=== PATIENT | female | born 1980 | race Caucasian/White ===

== ENCOUNTER 2018-12-27 06:35 | Inpatient (IN) | payer OTHER ==
[2018-12-27] MEDS: ELECTROLYTE-148 SOLN 1,000 ML IV SCH (07:00)
[2018-12-27 07:38] VITALS: BMI 46.8
[2018-12-27] MEDS ORDERED: morphine SULFATE/PF 0.5 MG/ML (2cc Syringe - QUVA) ONE (08:04)
[2018-12-27] MEDS ORDERED: SUCCINYLCHOLINE CHLORIDE 200 MG/10 ML SYRINGE ONE (08:04)
[2018-12-27] MEDS ORDERED: PROPOFOL 20 ML ONE (08:04)
[2018-12-27] MEDS ORDERED: ePHEDrine SULFATE 50 MG/1 ML AMPULE ONE ×2 (08:05→08:36)
[2018-12-27] MEDS ORDERED: morphine SULFATE/PF 0.5 MG/ML (2cc Syringe - QUVA) SPIN ONE (08:20)
--- NOTE | 2018-12-27 08:21 | HP ---
Past Medical History - Admission Chief Complaint: Elective History of Present Illness: 38 yo obese, with h/o thyroid disease, @ 39 weeks gestation, is pre op for repeat . She had e prior C-sections. She denies any contractions pain. She declines tubal ligation. History Source: Patient Limitations to Obtaining History: No Limitations - Past Medical History ...: 3 ...Para: 2 ...Term: 2 ...: 0 ...Spon : 0 ...Induced : 0 ...Multiple Gestation: 0 ...LMP: 03/31/18 ... Weeks Gestation by Dates: 38.6 ...EDC by Dates: 01/04/19 ...EDC by Sono: 01/04/19 - Past Surgical History Past Surgical History: Yes: Hx Myomectomy: No Hx Transabdominal Cerclage: No - Smoking History Smoking history: Never smoked Have you smoked in the past 12 months: No - Alcohol/Substance Use Hx Alcohol Use: No - Social History Usual Living Arrangement: Yes: Other (With extended family) History of Recent Travel: No Home Medications - Allergies Allergies/Adverse Reactions: Allergies Allergy/AdvReac Type Severity Reaction Status Date / Time No Known Allergies Allergy Verified 12/27/18 07:13 - Home Medications Home Medications: Ambulatory Orders Levothyroxine Sodium [Levo-T] 200 mcg PO DAILY 10/13/18 Prenat 115/Iron Fum/Folic/Dss [ 19 Tablet] 1 tab PO DAILY 10/13/18 Family Medical History Family History: Unremarkable Review of Systems - Review of Systems Constitutional: reports: No Symptoms Eyes: reports: No Symptoms HENT: reports: No Symptoms Neck: reports: No Symptoms Cardiovascular: reports: No Symptoms Respiratory: reports: No Symptoms Gastrointestinal: reports: No Symptoms Genitourinary: reports: No Symptoms Breasts: reports: No Symptoms Reported Musculoskeletal: reports: No Symptoms Integumentary: reports: No Symptoms Neurological: reports: No Symptoms Endocrine: reports: No Symptoms Hematology/Lymphatic: reports: No Symptoms Psychiatric: reports: No Symptoms Pain Intensity: 0 Physical Exam - Maternity Vital Signs: Vital Signs Temperature 97.8 F 12/27/18 07:12 Pulse Rate 94 H 12/27/18 07:12 Respiratory Rate 20 12/27/18 07:12 Blood Pressure 131/73 12/27/18 07:12 O2 Sat by Pulse Oximetry (%) Constitutional: Yes: Well Nourished Eyes: Yes: Conjunctiva Clear HENT: Yes: Atraumatic Neck: Yes: Supple Cardiovascular: Yes: Regular Rate and Rhythm Lungs: Clear to auscultation - Abdominal Exam/OB Number of Fetuses: Single Presentation: Vertex Contractions: No - Vaginal Exam/OB Presentation: Vertex/Position - Physical Exam ...Motor Strength: WNL Psychiatric: Yes: Alert, Oriented Problem List - Problems (1) Delivery by elective section Problems reviewed: Yes Code(s): O82 - ENCOUNTER FOR DELIVERY WITHOUT INDICATION (2) Previous section Problems reviewed: Yes Code(s): Z98.891 - HISTORY OF UTERINE SCAR FROM PREVIOUS SURGERY Assessment/Plan Previous Pre op for elective Consent signed Anesthesia to see patient
[2018-12-27] MEDS ORDERED: MIDAZOLAM HCL 2 MG/2 ML SINGLE DOSE VIAL ONE (09:03)
[2018-12-27] MEDS ORDERED: OXYTOCIN 10 UNITS/ML VIAL ONE (09:07)
[2018-12-27] MEDS ORDERED: METHYLERGONOVINE MALEATE 0.2 MG/1 ML AMP IM PRN (09:51)
[2018-12-27] MEDS ORDERED: IBUPROFEN 800 MG/8 ML IJ IVPB PRN (09:51)
[2018-12-27] MEDS ORDERED: oxyCODONE HCL 5 MG TABLET PO PRN (09:51)
--- NOTE | 2018-12-27 09:55 | OP ---
Operative Note - Note: Operative Date: 12/27/18 Pre-Operative Diagnosis: Elective Operation: Repeat Low Transverse Findings: Baby boy in cephallic presentation Post-Operative Diagnosis: Same as Pre-op Surgeon: Anaya Mcwilliams Automotive Parts Clerk: José Miguel Gunn Anesthesia: Spinal Specimens Removed: Placenta Estimated Blood Loss (mls): 700 Operative Report Dictated: Yes
[2018-12-27] MEDS ORDERED: ONDANSETRON 4 MG/2 ML VIAL IVPUSH PRN (10:16)
[2018-12-27] MEDS: PRENATAL VITAMINS W/ FOLIC ACID TABLET (FP) PO SCH (10:21)
[2018-12-27] MEDS: FERROUS SO4 325 MG TABLET (FP) PO SCH ×2 (10:34→22:00)
--- NOTE | 2018-12-27 15:13 | OP ---
DATE OF OPERATION: 12/27/2018 PREOPERATIVE DIAGNOSIS: Previous section. POSTOPERATIVE DIAGNOSIS: Previous section. PROCEDURE: Repeat low transverse section. SURGEON: Anaya Mcwilliams MD ANESTHESIA: Spinal. MOTORBOAT OPERATOR: EMELY Hernandez COMPLICATIONS: None. ESTIMATED BLOOD LOSS: 700 mL. DESCRIPTION OF PROCEDURE: Patient was taken to the operating room where spinal anesthesia was administered. Patient was then prepped and draped in proper sterile fashion. A Pfannenstiel skin incision was made and carried down to the underlying layer of fascia. The fascia was incised in the midline and extended laterally. The inferior aspect of the fascial incision was then grasped with a Sampson clamp, elevated, and the rectus muscle dissected out bluntly. Attention was then turned to the superior aspect of the fascial incision which, in a similar fashion, was then grasped with a Sampson clamp, elevated, and the rectus muscle dissected out bluntly. The rectus muscle was then in the midline. The peritoneum identified and entered sharply with the Metzenbaum scissors. The peritoneal incision was entered with the Metzenbaum scissors, and the incision was extended superiorly and inferiorly with good visualization of the bladder. Then, the vesicouterine peritoneum was then grasped with a pickup and entered sharply with the Metzenbaum scissors. This incision was extended laterally and the bladder flap created digitally. The bladder blade was inserted, and the lower uterine segment was incised using a 10-blade. This incision was extended laterally and the head delivered atraumatically. Nose and mouth were suctioned and the cord clamped and cut. The infant was handed to the waiting climatology professor. The placenta was removed manually, and the uterus was cleared of all clots and debris. The uterine incision was repaired using 0 Biosyn in a running locked fashion. A second layer of the same suture was used as a means to provide excellent hemostasis. Then, the pelvis was then irrigated. The peritoneum was closed using 3-0 Vicryl. The fascia was reapproximated using 0 Vicryl in a running fashion, and the skin was closed in a subcuticular fashion using 3-0 Vicryl. Patient tolerated the procedure well. Patient was then taken to PACU in stable condition. PATHOLOGY: Placenta. Latonya ROSSI/[id number]
[2018-12-27] MEDS: OXYTOCIN 20 UNITS in 0.9% NS 20 UNIT/1,000 ML INFUS.BAG IV SCH (18:15)
[2018-12-28] MEDS: OXYTOCIN 20 UNITS in 0.9% NS 20 UNIT/1,000 ML INFUS.BAG IV SCH (02:07)
--- NOTE | 2018-12-28 05:33 | PN ---
Post Note - Post Date of Delivery: 12/27/18 Post Day: 1 Vital Signs: Vital Signs - 24 hr 12/27/18 12/27/18 12/27/18 07:12 09:45 10:00 Temperature 97.8 F 97.9 F Pulse Rate 94 H 87 88 Respiratory 20 20 19 Rate Blood Pressure 131/73 115/46 L 104/49 L O2 Sat by Pulse 95 98 Oximetry (%) 12/27/18 12/27/18 12/27/18 10:15 10:30 11:15 Temperature 97.7 F Pulse Rate 79 86 70 Respiratory 20 18 20 Rate Blood Pressure 100/55 L 101/55 L 105/63 O2 Sat by Pulse 99 99 100 Oximetry (%) 12/27/18 12/27/18 12/27/18 12:00 13:00 14:00 Temperature 99.0 F Pulse Rate 72 Respiratory 18 18 18 Rate Blood Pressure 111/57 L O2 Sat by Pulse Oximetry (%) 12/27/18 12/27/18 12/27/18 15:00 16:00 17:00 Temperature Pulse Rate Respiratory 18 18 18 Rate Blood Pressure O2 Sat by Pulse Oximetry (%) 12/27/18 12/27/18 12/27/18 18:00 19:00 20:00 Temperature 98.0 F Pulse Rate 85 Respiratory 18 18 18 Rate Blood Pressure 105/70 O2 Sat by Pulse Oximetry (%) 12/27/18 12/27/18 12/27/18 21:00 22:00 23:00 Temperature 98.6 F Pulse Rate 74 Respiratory 18 18 18 Rate Blood Pressure 100/58 L O2 Sat by Pulse Oximetry (%) 12/28/18 12/28/18 12/28/18 00:00 01:00 02:00 Temperature 98.0 F Pulse Rate 71 Respiratory 18 18 18 Rate Blood Pressure 107/68 O2 Sat by Pulse Oximetry (%) 12/28/18 12/28/18 03:00 04:00 Temperature Pulse Rate Respiratory 18 18 Rate Blood Pressure O2 Sat by Pulse Oximetry (%) - Subjective Subjective: No Complaints - Objective Afebrile: Yes Breast: Not engorged Abdomen: Soft, Non-tender Uterus: Fundus firm Vagina: Scant lochia Extremities: Non-tender - Assessment/Plan (1) Delivery by elective section Assessment: Other (POD1 stable) (2) Previous section Assessment: Other (POD1) Plan: Routine Care
[2018-12-28 07:56] LABS: BASO % 0.3 % (0-2.0); EOS % 0.9 % (0-4.5); HEMATOCRIT 29.8 % (32.4-45.2); HEMOGLOBIN 9.8 GM/dL (10.7-15.3); LYMPH % 11.4 % (8-40); MCH 28.8 pg (25.7-33.7); MCHC 32.8 g/dl (32.0-36.0); MEAN CELL VOLUME 87.8 fl (80-96); MEAN PLT VOLUME 9.5 fl (7.5-11.1); NEUT % 80.4 % (42.8-82.8); PLATELET COUNT 158 K/MM3 (134-434); RBC 3.39 M/mm3 (3.60-5.2); RDW 14.6 % (11.6-15.6); WHITE BLOOD COUNT 8.7 K/mm3 (4.0-10.0)
--- NOTE | 2018-12-28 10:02 | PN ---
Progress Note (short form) - Note Progress Note: Post op day#1.S/P C Section under spinal anesthesia with duramorph uneventful.Patient stable and has little pain for which she is on medication.No any anesthesia related problem.Patient DC from the anesthesia care.
[2018-12-28] MEDS: FERROUS SO4 325 MG TABLET (FP) PO SCH ×2 (10:12→21:48)
[2018-12-28] MEDS: PRENATAL VITAMINS W/ FOLIC ACID TABLET (FP) PO SCH (10:12)
[2018-12-28] MEDS: BISACODYL 10 MG SUPP.RECT RC PRN (18:58)
[2018-12-29] MEDS: BISACODYL 10 MG SUPP.RECT RC PRN (01:35)
[2018-12-29] MEDS: IBUPROFEN 600 MG TABLET (FP) PO PRN ×3 (02:02→21:08)
[2018-12-29] MEDS: SIMETHICONE 80 MG TAB.CHEW (FP) PO PRN ×3 (02:02→21:08)
[2018-12-29] MEDS: ACETAMINOPHEN 325 MG TABLET (FP) PO PRN ×2 (09:41→21:08)
[2018-12-29] MEDS: FERROUS SO4 325 MG TABLET (FP) PO SCH ×2 (09:42→21:26)
[2018-12-29] MEDS: PRENATAL VITAMINS W/ FOLIC ACID TABLET (FP) PO SCH (09:42)
[2018-12-30 08:08] LABS: BASO % 0.6 % (0-2.0); EOS % 3.7 % (0-4.5); HEMATOCRIT 30.1 % (32.4-45.2); HEMOGLOBIN 9.8 GM/dL (10.7-15.3); LYMPH % 20.9 % (8-40); MCH 28.4 pg (25.7-33.7); MCHC 32.4 g/dl (32.0-36.0); MEAN CELL VOLUME 87.6 fl (80-96); MEAN PLT VOLUME 9.3 fl (7.5-11.1); MONO % 7.8 % (3.8-10.2); PLATELET COUNT 185 K/MM3 (134-434); RBC 3.44 M/mm3 (3.60-5.2); RDW 15.1 % (11.6-15.6); WHITE BLOOD COUNT 7.2 K/mm3 (4.0-10.0)
[2018-12-30] MEDS: PRENATAL VITAMINS W/ FOLIC ACID TABLET (FP) PO SCH (10:36)
[2018-12-30] MEDS: SIMETHICONE 80 MG TAB.CHEW (FP) PO PRN ×2 (10:36→20:27)
[2018-12-30] MEDS: FERROUS SO4 325 MG TABLET (FP) PO SCH ×2 (10:36→21:16)
[2018-12-30] MEDS: IBUPROFEN 600 MG TABLET (FP) PO PRN ×2 (10:36→20:27)
[2018-12-30] MEDS: ACETAMINOPHEN 325 MG TABLET (FP) PO PRN ×2 (10:37→20:27)
[2018-12-30] MEDS: OXYTOCIN 20 UNITS in 0.9% NS 20 UNIT/1,000 ML INFUS.BAG IV SCH ×2 (20:14→20:15)
[2018-12-30] MEDS: ELECTROLYTE-148 SOLN 1,000 ML IV SCH ×3 (20:14→20:16)
[2018-12-31] MEDS: SIMETHICONE 80 MG TAB.CHEW (FP) PO PRN (08:35)
[2018-12-31] MEDS: IBUPROFEN 600 MG TABLET (FP) PO PRN (08:35)
[2018-12-31] MEDS: ACETAMINOPHEN 325 MG TABLET (FP) PO PRN (08:36)
--- NOTE | 2018-12-31 08:38 | DS ---
Physical Exam-PATTERNMAKER ALL AROUND Vital Signs: Vital Signs Temperature 98.1 F 12/30/18 22:00 Pulse Rate 82 12/30/18 22:00 Respiratory Rate 18 12/30/18 22:00 Blood Pressure 143/85 12/30/18 22:00 O2 Sat by Pulse Oximetry (%) 100 12/27/18 11:15 Constitutional: No: No Distress Eyes: Yes: Conjunctiva Clear HENT: Yes: Atraumatic Neck: Yes: Supple Cardiovascular: Yes: Regular Rate and Rhythm Respiratory: Yes: Regular Gastrointestinal: Yes: Normal Bowel Sounds ...Rectal Exam: Yes: WNL Renal/: Yes: WNL Pelvis: Yes: WNL External Genitalia: Yes: Normal Vaginal Exam: Yes: Normal Cervix: Yes: Normal Uterus: Yes: Firm Breast(s): Yes: WNL Musculoskeletal: Yes: WNL Extremities: No: Calf Tenderness Wound/Incision: Yes: Well Approximated Neurological: Yes: Alert, Oriented ...Motor Strength: WNL Psychiatric: Yes: Alert, Oriented Labs: CBC, BMP 12/30/18 07:22 Delivery - Delivery Type of Anesthesia: Spinal Episiotomy/Laceration: None EBL (cc): 700 Delivery, Single - Stages of Labor Date of Delivery: 12/27/18 Time of Delivery: 08:50 Time Placenta Delivered: 08:52 - Condition of Infant Floor Care Specialist/Maintenance Painter Apprentice Present: Yes Name: Pao Humphreys Infant Gender: Male Weight: 7 lb 5 oz Position: Right, OT Total Hours ROM (Hrs/Mins): hrs 4min - 1 Minute Total Score: 8 5 Minutes Total Score: 8 - [place] Feeding Plan Initial Plan: Exclusive throughout hospitalization Discharge Summary Problems reviewed: Yes Reason For Visit: SCHEDULED C/SECTION Current Active Problems Delivery by elective section (Acute) Previous section (Acute) Procedures: Principal: Repeat Low Transverse Hospital Course: Routine post op care Health Concerns: Obesity Plan of Treatment: Resume normal activities in 6 weeks MD follow up in 2 weeks Goals: Resume normal activities in 6 weeks Condition: Good - Instructions Diet, Activity, Other Instructions: Regular diet No driving, no lifting for 4 weeks F/U with MD in 2 weeks Disposition: HOME - Home Medications Comprehensive Discharge Medication List: Ambulatory Orders Levothyroxine Sodium [Levo-T] 200 mcg PO DAILY 10/13/18 Prenat 115/Iron Fum/Folic/Dss [ 19 Tablet] 1 tab PO DAILY 10/13/18 Prescription Drug Monitoring Program (I-STOP) results: I-STOP not reviewed
[2018-12-31 09:25] VITALS: BP 138/89; PULSE 77; TEMP 98.2
[2018-12-31] MEDS: PRENATAL VITAMINS W/ FOLIC ACID TABLET (FP) PO SCH (11:20)
[2018-12-31] MEDS: FERROUS SO4 325 MG TABLET (FP) PO SCH (11:20)
--- NOTE | 2018-12-31 11:24 | PN ---
Post Note - Post Date of Delivery: 12/27/18 Vital Signs: Vital Signs - 24 hr 12/30/18 12/31/18 22:00 08:30 Temperature 98.1 F 98.2 F Pulse Rate 82 77 Respiratory 18 18 Rate Blood Pressure 143/85 138/89 - Subjective Subjective: No Complaints, No Nausea or vomiting - Objective Afebrile: Yes Breast: Not engorged Abdomen: Soft, Non-tender Uterus: Fundus firm Vagina: Scant lochia Extremities: Non-tender - Assessment/Plan (1) Delivery by elective section Assessment: Other (POD1) (2) Previous section Plan: Routine Care
--- NOTE | 2019-01-04 17:52 | PATH ---
Surgical Pathology Report Patient Name: KENDALL LANE Med. Rec. #: [id number] /Age/Gender: 1980 (Age: 38) / F Account: [id number] Location: [facility] OBS/PHARMACIST PER DIEM Taken: 12/27/2018 Received: 12/27/2018 Reported: 01/04/2019 Physicians: Anaya Mcwilliams M.D. Specimen(s) Received PLACENTA Clinical History , previous x2, history of hypothyroidism Final Diagnosis PLACENTA, SECTION: 592 G THIRD TRIMESTER PLACENTA WITH TRIVASCULAR UMBILICAL CORD AND UNREMARKABLE PLACENTAL MEMBRANES. Electronically Signed Jes Daiely M.D. Gross Description The specimen is received fresh labeled placenta and is a 592 gram, 21.0 x15.0 x 3.6 cm. markedly disrupted placenta with attached membranes and umbilical cord. The attached membranes are marie, translucent with focal opacities and insert marginally. The umbilical cord measures 47 cm. in length and averages 1.2 cm. in diameter. The cord inserts eccentrically, 3 cm. to the nearest margin. No true knots or strictures are identified. Cut surface of the umbilical cord reveals 3 vessels. The surface is manjarrez blue with a large central defect, moderate fibrin deposition and appropriate caliber vessels. The maternal surface is red-brown with focal defects. Sectioning reveals red-brown, spongy parenchyma. No lesions are identified. Automotive Tire Technician sections are submitted in three cassettes as follows: 1- membrane rolls and umbilical cord; 2-3- full thickness sections of placenta. 01/02/2019 [place]01/02/2019
== END 2018-12-31 14:40 | disposition home or self-care (01) | DRG 540 ==
LOC: JLDR 06:35 → J3W 10:59
PROVIDERS: ADMIT Obstetrics & Gynecology; ATTEND Obstetrics & Gynecology
PROC: 10D00Z1 Extraction of Products of Conception, Low, Open Approach (ICD-10-PCS; principal; 2018-12-27)
DX: O34.211 Maternal care for low transverse scar from previous cesarean delivery (principal); N85.8 Other specified noninflammatory disorders of uterus; Z3A.39 39 weeks gestation of pregnancy; O99.284 Endocrine, nutritional and metabolic diseases complicating childbirth; O99.214 Obesity complicating childbirth; Z37.0 Single live birth
CPT/HCPCS: 36415; 85025; 88307-TC

== ENCOUNTER 2019-01-01 11:43 | Emergency (ER) | payer OTHER ==
[2019-01-01 12:01] VITALS: PULSE 70; TEMP 98.5; BMI 46.3
--- NOTE | 2019-01-01 13:11 | PDOC ---
History of Present Illness - General Chief Complaint: Wound Stated Complaint: WOUND CARE Time Seen by Provider: 01/01/19 12:32 - History of Present Illness Initial Comments: 01/01/19 13:58 Ms. Mars is a 38 yo female w/ pmh of obesity, s/p 12/[address] Mcwilliams w/ discharge yesterday who presents for evaluation of pain at incision site. Patient also reports she has had serosanguineous drainage over the last day as well. Patient presents as her pain has gotten worse from discharge. The patient denies chest pain, shortness of breath, headache and dizziness. Denies fever, chills, nausea, vomit, diarrhea and constipation. Denies dysuria, frequency, urgency and hematuria. Past History - Past Medical History Allergies/Adverse Reactions: Allergies Allergy/AdvReac Type Severity Reaction Status Date / Time No Known Allergies Allergy Verified 01/01/19 12:02 Home Medications: Ambulatory Orders Levothyroxine Sodium [Levo-T] 200 mcg PO DAILY 10/13/18 Prenat 115/Iron Fum/Folic/Dss [ 19 Tablet] 1 tab PO DAILY 10/13/18 Asthma: No Cancer: No Cardiac Disorders: No COPD: No Diabetes: No HTN: No Seizures: No Thyroid Disease: Yes (hypothyroidism) - Psycho Social/Smoking Cessation Hx Smoking History: Never smoked Have you smoked in the past 12 months: No Hx Alcohol Use: No Drug/Substance Use Hx: No Hx Substance Use Treatment: No Review of Systems - Review of Systems Comments:: 01/01/19 14:00 GENERAL/CONSTITUTIONAL: No fever or chills. No weakness. HEAD, EYES, EARS, NOSE AND THROAT: No change in vision. No ear pain or discharge. No sore throat. CARDIOVASCULAR: No chest pain or shortness of breath RESPIRATORY: No cough, wheezing, or hemoptysis. GASTROINTESTINAL: +Pain at site w/ drainage as described. No nausea, vomiting, diarrhea or constipation. GENITOURINARY: No dysuria, frequency, or change in urination. MUSCULOSKELETAL: No joint or muscle swelling or pain. No neck or back pain. SKIN: No rash NEUROLOGIC: No headache, vertigo, loss of consciousness, or change in strength/ sensation. ENDOCRINE: No increased thirst. No abnormal weight change HEMATOLOGIC/LYMPHATIC: No anemia, easy bleeding, or history of blood clots. ALLERGIC/IMMUNOLOGIC: No hives or skin allergy. *Physical Exam - Vital Signs Last Vital Signs Temp Pulse Resp BP Pulse Ox 98.5 F 70 18 148/77 98 01/01/19 11:58 01/01/19 11:58 01/01/19 11:58 01/01/19 11:58 01/01/19 11:58 - Physical Exam Comments: 01/01/19 14:01 GENERAL: Awake, alert, and fully oriented, in no acute distress HEAD: No signs of trauma, normocephalic, atraumatic EYES: PERRLA, EOMI, sclera anicteric, conjunctiva clear ENT: Auricles normal inspection, hearing grossly normal, nares patent, oropharynx clear without exudates. Moist mucosa NECK: Normal ROM, supple, no lymphadenopathy, JVD, or masses LUNGS: No distress, speaks full sentences, clear to auscultation bilaterally HEART: Regular rate and rhythm, normal S1 and S2, no murmurs, rubs or gallops, peripheral pulses normal and equal bilaterally. ABDOMEN: +Well-healing incision site noted; no erythema or discharge, TTP. Soft, nontender, normoactive bowel sounds. No guarding, no rebound. No masses EXTREMITIES: Normal inspection, Normal range of motion, no edema. No clubbing or cyanosis. NEUROLOGICAL: Cranial nerves II through XII grossly intact. Normal speech, normal gait, no focal sensorimotor deficits SKIN: Warm, Dry, normal turgor, no rashes or lesions noted. ED Treatment Course - LABORATORY CBC & Chemistry Diagram: 01/01/19 13:58 01/01/19 13:58 Medical Decision Making - Medical Decision Making 01/01/19 16:13 Ms. Mars is a 38 yo female w/ pmh as described who presents for evaluation of pain at incision site following discharge yesterday. Patient denies any infection symptoms and well appearing. Attempted to get in touch with [facility] however unable to reach despite multiple attempts. CTAP ordered for further evaluation of possible collection or surgical sequelae; patient refusing IV contrast over concern of risks with breast-feeding. Patient pending CTAP at this time. 01/01/19 17:11 CT scan positive for cholelithiasis only. Repeat BP normalized. No concern for acute process at this time and patient will follow-up outpatient for further evaluation. No concern for acute process at this time. Discharging to home. Discharge - Discharge Information Problems reviewed: Yes Clinical Impression/Diagnosis: Previous section Disposition: HOME - Follow up/Referral Referrals: Radha Mars MD [Primary Care Provider] - - Patient Discharge Instructions Patient Printed Discharge Instructions: DI for Additional Instructions: You were evaluated today in the ER following your surgery. We performed laboratory evaluation as well as CT scan with no concerning findings. Please follow-up with [facility] later this week for further evaluation. You may take over the counter tylenol per package instructions for pain control. Return to ER if any fever, chills, increase in pain, or other concerning symptoms. - Post Discharge Activity
[2019-01-01 14:46] LABS: ALBUMIN 2.6 g/dl (3.4-5.0); BILIRUBIN,TOTAL 0.2 mg/dL (0.2-1); BLOOD UREA NITROGEN 11.2 mg/dL (7-18); CALCIUM 8.8 mg/dL (8.5-10.1); CREATININE 0.5 mg/dL (0.55-1.3)
[2019-01-01 14:48] LABS: BASO % 0.5 % (0-2.0); EOS % 2.8 % (0-4.5); HEMATOCRIT 32.8 % (32.4-45.2); HEMOGLOBIN 10.6 GM/dL (10.7-15.3); LYMPH % 22.1 % (8-40); MCH 28.1 pg (25.7-33.7); MCHC 32.2 g/dl (32.0-36.0); MEAN CELL VOLUME 87.4 fl (80-96); MEAN PLT VOLUME 9.2 fl (7.5-11.1); MONO % 6.9 % (3.8-10.2); NEUT % 67.7 % (42.8-82.8); PLATELET COUNT 254 K/MM3 (134-434); RBC 3.75 M/mm3 (3.60-5.2); RDW 15.2 % (11.6-15.6); WHITE BLOOD COUNT 6.1 K/mm3 (4.0-10.0)
--- NOTE | 2019-01-01 15:26 | PDOC ---
Attending Attestation - Resident Resident Name: Kameron Valleorn - ED Attending Attestation I have performed the following: I have examined & evaluated the patient, The case was reviewed & discussed with the resident, I agree w/resident's findings & plan - HPI HPI: 01/01/19 15:22 38y/o F POD 5 . Pt pain was improving but now with two episodes of bleeding over past two days and worsening pain to lower abdomen/incision site. no pus/redness, "felt cold" but no measured fever. normal vaginal bleeding, no other discharge. - Physicial Exam PE: 01/01/19 15:23 Afebrile, vital signs stable Alert, obese, otherwise well-appearing lying in stretcher Abdomen is soft/nondistended. Tender to the lower abdomen above the incision site, incision is otherwise clean/dry/intact with small area of clotted blood/ scab, no erythema or discharge. No fluctuance or induration. - Medical Decision Making 01/01/19 15:24 38-year-old female postop day 5 presents with lower abdominal pain and intermittent bleeding from the site. No evidence of infection externally, no active bleeding, hemodynamically stable but with lower abdominal tenderness on examination, question normal postop. Check labs Consider imaging Discuss with [employer] FIELD COORDINATOR
[2019-01-01 18:56] VITALS: BP 132/71
== END 2019-01-01 17:26 | disposition home or self-care (01) ==
LOC: JER 11:43
DX: O90.89 Other complications of the puerperium, not elsewhere classified (principal); G89.18 Other acute postprocedural pain; O99.63 Diseases of the digestive system complicating the puerperium; K80.20 Calculus of gallbladder without cholecystitis without obstruction
CPT/HCPCS: 36415; 74176-TC; 80053; 85025; 99282-25

== ENCOUNTER 2020-06-10 08:16 | Inpatient (IN) | payer OTHER ==
[2020-06-10 10:03] LABS: BASO % 0.6 % (0-2.0); EOS % 0.6 % (0-4.5); HEMATOCRIT 38.9 % (32.4-45.2); HEMOGLOBIN 13.3 GM/dL (10.7-15.3); LYMPH % 17.6 % (8-40); MCH 29.7 pg (25.7-33.7); MCHC 34.2 g/dl (32.0-36.0); MEAN CELL VOLUME 86.9 fl (80-96); MEAN PLT VOLUME 9.4 fl (7.5-11.1); MONO % 3.8 % (3.8-10.2); NEUT % 77.4 % (42.8-82.8); PLATELET COUNT 228 K/MM3 (134-434); RBC 4.47 M/mm3 (3.60-5.2); RDW 13.9 % (11.6-15.6); WHITE BLOOD COUNT 9.2 K/mm3 (4.0-10.0)
[2020-06-10 10:23] LABS: CALCIUM 8.9 mg/dL (8.5-10.1)
[2020-06-10 10:24] LABS: ALBUMIN 3.5 g/dl (3.4-5.0)
[2020-06-10 10:27] LABS: CREATININE 0.7 mg/dL (0.55-1.3)
[2020-06-10 10:29] LABS: BILIRUBIN,TOTAL 0.2 mg/dL (0.2-1); TOT PROT 7.4 g/dl (6.4-8.2)
[2020-06-10] MEDS ORDERED: SODIUM CHLORIDE 1,000 ML IV STA (11:06)
[2020-06-10] MEDS ORDERED: NITROGLYCERIN 2% OINTMENT - 1GM PACKET TD ONE ×2 (12:40→12:45)
[2020-06-10] MEDS ORDERED: ACETAMINOPHEN 325 MG TABLET (FP) PO PRN (15:38)
[2020-06-10] MEDS: DEXTROSE 5%-0.45% SALINE 1,000 ML IV SCH (17:05)
[2020-06-10] MEDS ORDERED: ACETAMINOPHEN 325 MG TABLET (FP) ONE (17:07)
[2020-06-10] MEDS ORDERED: ACETAMINOPHEN INJECTION 100 ML IVPB ONE (18:09)
[2020-06-11] MEDS ORDERED: IBUPROFEN 400 MG TABLET (FP) PO ONE (01:38)
[2020-06-11] MEDS: LEVOTHYROXINE NA 200 MCG TABLET PO SCH (06:52)
[2020-06-11 09:08] LABS: BASO % 0.5 % (0-2.0); EOS % 0.9 % (0-4.5); HEMATOCRIT 35.4 % (32.4-45.2); HEMOGLOBIN 11.9 GM/dL (10.7-15.3); LYMPH % 24.4 % (8-40); MCH 29.4 pg (25.7-33.7); MCHC 33.7 g/dl (32.0-36.0); MEAN CELL VOLUME 87.2 fl (80-96); MEAN PLT VOLUME 8.6 fl (7.5-11.1); MONO % 7.2 % (3.8-10.2); PLATELET COUNT 263 K/MM3 (134-434); RBC 4.06 M/mm3 (3.60-5.2); RDW 13.8 % (11.6-15.6); WHITE BLOOD COUNT 8.1 K/mm3 (4.0-10.0)
[2020-06-11 09:31] LABS: ALBUMIN 3.1 g/dl (3.4-5.0); CALCIUM 8.6 mg/dL (8.5-10.1)
[2020-06-11 09:32] LABS: BLOOD UREA NITROGEN 8.7 mg/dL (7-18)
[2020-06-11 09:35] LABS: CREATININE 0.6 mg/dL (0.55-1.3)
[2020-06-11 09:36] LABS: BILIRUBIN,TOTAL 0.4 mg/dL (0.2-1); TOT PROT 6.2 g/dl (6.4-8.2)
[2020-06-11] MEDS: DEXTROSE 5%-0.45% SALINE 1,000 ML IV SCH (16:57)
[2020-06-11] MEDS: SODIUM CHLORIDE 1,000 ML IV SCH (19:10)
[2020-06-11 23:47] VITALS: BMI 50.4
[2020-06-12] MEDS: LEVOTHYROXINE NA 200 MCG TABLET PO SCH (06:24)
[2020-06-12] MEDS: SODIUM CHLORIDE 1,000 ML IV SCH (07:45)
[2020-06-12 08:52] LABS: CALCIUM 9.2 mg/dL (8.5-10.1)
[2020-06-12 08:53] LABS: ALBUMIN 3.5 g/dl (3.4-5.0); BLOOD UREA NITROGEN 11.6 mg/dL (7-18)
[2020-06-12 08:56] LABS: CREATININE 0.7 mg/dL (0.55-1.3)
[2020-06-12 08:57] LABS: BILIRUBIN,TOTAL 0.6 mg/dL (0.2-1)
[2020-06-12 10:23] VITALS: TEMP 98.2
[2020-06-12] MEDS ORDERED: SODIUM CHLORIDE 1,000 ML IV SCH (11:13)
[2020-06-12 13:23] VITALS: BP 158/87; PULSE 78
== END 2020-06-12 14:16 | disposition home or self-care (01) | DRG 351 ==
LOC: JER 08:16 → JERBED 12:46 → J4W 06-11 20:59
PROVIDERS: ADMIT Family Medicine; ATTEND Family Medicine
DX: M62.82 Rhabdomyolysis (principal); R55 Syncope and collapse; R06.02 Shortness of breath; E66.01 Morbid (severe) obesity due to excess calories; E03.9 Hypothyroidism, unspecified; E78.5 Hyperlipidemia, unspecified; R07.9 Chest pain, unspecified; Z68.43 Body mass index [BMI] 50.0-59.9, adult; I10 Essential (primary) hypertension
CPT/HCPCS: 36415; 70450-TC; 70551-TC; 71045-TC-FY; 71275-TC; 80053; 80061; 82550; 82553; 83721; 84443; 84484; 84703; 85025; 85379; 93005; 93010; 93306-TC; 93880-TC; 93970-TC; 97116-GP; 97161-GP; 99285-25; C9803; Q9967; U0003; U0005

== ENCOUNTER 2023-04-14 15:00 | Emergency (ER) | payer OTHER ==
[2023-04-14 15:11] VITALS: RESP 18; BMI 47.2
[2023-04-14 16:34] LABS: BASO % 0.9 % (0-2.0); EOS % 1.6 % (0-4.5); HEMATOCRIT 42.5 % (32.4-45.2); HEMOGLOBIN 14.3 GM/dL (10.7-15.3); LYMPH % 25.9 % (8-40); MCHC 33.8 g/dl (32.0-36.0); MEAN CELL VOLUME 85.8 fl (80-96); MEAN PLT VOLUME 8.4 fl (7.5-11.1); MONO % 7.2 % (3.8-10.2); NEUT % 64.4 % (42.8-82.8); PLATELET COUNT 347 10^3/uL (134-434); RBC 4.95 M/mm3 (3.60-5.2); RDW 13.6 % (11.6-15.6)
[2023-04-14] MEDS ORDERED: ACETAMINOPHEN INJECTION 100 ML IVPB ONE (16:36)
[2023-04-14] MEDS: ACETAMINOPHEN 1000 MG/100 ML BAG IVPB ONE (16:40)
[2023-04-14 16:52] LABS: CHLORIDE 101 mmol/L (98-107); SODIUM 133 mmol/L (136-145)
[2023-04-14 16:54] LABS: CALCIUM 9.3 mg/dL (8.5-10.1)
[2023-04-14 16:55] LABS: ALBUMIN 3.7 g/dl (3.4-5.0); BLOOD UREA NITROGEN 13.4 mg/dL (7-18); CO2 31 mmol/L (21-32); GLUCOSE,RANDOM 104 mg/dL (74-106); MAGNESIUM 2.2 mg/dL (1.8-2.4)
[2023-04-14 16:58] LABS: CREATININE 0.6 mg/dL (0.55-1.3); SGOT/AST 99 U/L (15-37); SGPT/ALT 84 U/L (13-61)
[2023-04-14 17:00] LABS: BILIRUBIN,TOTAL 0.6 mg/dL (0.2-1); TOT PROT 8.4 g/dl (6.4-8.2)
[2023-04-14 17:01] LABS: ALK PHOS 66 U/L (45-117); ANION GAP 2 mmol/L (4-13); POTASSIUM 7.6 mmol/L (3.5-5.1)
[2023-04-14 17:42] LABS: POTASSIUM 4.1 mmol/L (3.5-5.1)
[2023-04-14 17:44] LABS: ALBUMIN 3.7 g/dl (3.4-5.0); BLOOD UREA NITROGEN 11.2 mg/dL (7-18)
[2023-04-14 17:47] LABS: CREATININE 0.6 mg/dL (0.55-1.3)
[2023-04-14 17:49] LABS: BILIRUBIN,TOTAL 0.5 mg/dL (0.2-1); TOT PROT 7.7 g/dl (6.4-8.2)
[2023-04-14 18:25] VITALS: BP 131/77; PULSE 65; TEMP 97.8
== END 2023-04-14 19:01 | disposition home or self-care (01) ==
LOC: JER 15:00
PROC: 3E033NZ Introduction of Analgesics, Hypnotics, Sedatives into Peripheral Vein, Percutaneous Approach (ICD-10-PCS; principal; 2023-04-14)
DX: I10 Essential (primary) hypertension (principal); R51.9 Headache, unspecified
CPT/HCPCS: 36415; 80053; 83735; 85025; 99284-25; J0131

== ENCOUNTER 2023-12-23 14:26 | Emergency (ER) | payer OTHER ==
[2023-12-23 14:32] VITALS: RESP 18; TEMP 97.9; BMI 48.4
[2023-12-23] MEDS ORDERED: ACETAMINOPHEN INJECTION 100 ML ONE (15:49)
[2023-12-23] MEDS ORDERED: METOCLOPRAMIDE HCL INJECTION 10 MG/2 ML VIAL ONE (15:49)
[2023-12-23] MEDS: METOCLOPRAMIDE HCL INJECTION 10 MG/2 ML VIAL IVPUSH ONE (16:15)
[2023-12-23] MEDS: SODIUM CHLORIDE 0.9% 500 ML INFUS.BAG IV ONE ×2 (16:16→16:27)
[2023-12-23] MEDS: ACETAMINOPHEN 1000 MG/100 ML BAG IVPB ONE (16:16)
[2023-12-23 17:32] VITALS: BP 118/61; PULSE 61
[2023-12-23 17:39] LABS: HIV INTERPRETATION NEGATIVE (NEGATIVE)
== END 2023-12-23 17:34 | disposition home or self-care (01) ==
LOC: JER 14:26
PROC: 3E033NZ Introduction of Analgesics, Hypnotics, Sedatives into Peripheral Vein, Percutaneous Approach (ICD-10-PCS; principal; 2023-12-23)
PROC: 3E033GC Introduction of Other Therapeutic Substance into Peripheral Vein, Percutaneous Approach (ICD-10-PCS; 2023-12-23)
DX: R51.9 Headache, unspecified (principal); R11.0 Nausea
CPT/HCPCS: 36415; 86803; 87389; 93005; 93010; 99284-25; J0131